=== PATIENT | male | born 1960 | race Caucasian/White ===

== ENCOUNTER 2024-02-01 09:30 | Observation (INO) | payer BC, SELFPAY ==
[2024-02-01] VITALS (71 sets, daily range): BP systolic 86–147; BP diastolic 53–76; PULSE 54–96; RESP 11–23; TEMP 36.6–37; O2SAT 91–100; BMI 37.3
--- NOTE | 2024-02-01 09:46 | DI.CT.S_ITS ---
PROCEDURE: CT ANGIO HEAD AND NECK INDICATIONS: Blurry vision/dizzy TECHNIQUE: After the administration of intravenous contrast, 1 mm thick sections acquired from the aortic arch through the [place] of [place]. 3-dimensional qfsdbcg-bjxzhfypg-rbcvnldlcz (MIP) and/or volume rendering reformats were acquired of the central intracranial vasculature and neck separately. For radiation dose reduction, the following was used: automated exposure control, adjustment of mA and/or kV according to patient size. COMPARISON: [facility], CT, CT HEAD/BRAIN WO CON, 02/01/2024, 10:32. FINDINGS: Image quality: Diagnostic. BRAIN: Please see separately dictated CT head report of 02/01/2024. HEAD CT ANGIOGRAPHY: Anterior circulation: Intracranial internal carotid arteries are normal in size and flow. The flow within the paired anterior cerebral arteries is normal and symmetric. The flow within the middle cerebral arteries is normal and symmetric. The anterior communicating artery is seen. No aneurysms are seen. Posterior circulation: Minimal left vertebral artery dominance. Visualized portions of the vertebral arteries demonstrate normal caliber, and join to form a normal appearing basilar artery. Flow within the posterior cerebral arteries is normal and symmetric. No aneurysms are seen. NECK CT ANGIOGRAPHY: Carotid system: The great vessels demonstrate a conventional anatomy as they arise from the aortic arch. The origins of the common carotid arteries appear patent. The common carotid arteries demonstrate normal caliber and courses. The bifurcation regions are both widely patent. The internal carotid arteries demonstrate normal calibers and courses. Posterior circulation: The origins of the vertebral arteries both appear widely patent. The more superior extracranial portions of both vertebral arteries also demonstrate normal courses and calibers. They join to form a normal appearing basilar artery. Soft tissues: Visualized neck soft tissues demonstrate no suspicious abnormalities. Bones: No suspicious bony lesions. Visualized cervical spine appears normally aligned. IMPRESSION: No areas of hemodynamically significant stenosis, vascular occlusion or aneurysmal dilation within the anterior circulation. No areas of hemodynamically significant stenosis, vascular occlusion or aneurysmal dilation within the posterior circulation. No areas of hemodynamically significant stenosis, vascular occlusion or aneurysmal dilation within the neck vasculature. Any quantitative measurements of stenosis were performed using NASCET criteria. Dictated by: Ling Baker M.D. on 02/01/2024 at 11:10 Approved by: Ling Baker M.D. on 02/01/2024 at 11:11
--- NOTE | 2024-02-01 09:47 | DI.CT.S_ITS ---
PROCEDURE: CT HEAD/BRAIN WO CON INDICATIONS: Blurry vision/dizzy TECHNIQUE: Noncontrast 4.5 mm thick angled axial sections acquired from the foramen magnum to the vertex, with coronal and sagittal reformats. For radiation dose reduction, the following was used: automated exposure control, adjustment of mA and/or kV according to patient size. COMPARISON: [facility], CT, CT ANGIO HEAD AND NECK, 02/01/2024, 10:32. FINDINGS: Image quality: Diagnostic. CSF spaces: Basal cisterns are patent. No extra-axial fluid collections. Ventricles are normal in size and shape. Brain: No midline shift. No intracranial masses or hemorrhage. [place]-white matter interface is normal. Skull and face: Calvarium and visualized facial bones are intact, without suspicious lesions. Sinuses: Visualized sinuses demonstrate scattered mucosal thickening. No distinct fluid levels.. IMPRESSION: No acute intracranial pathology. Dictated by: Ling Baker M.D. on 02/01/2024 at 10:53 Approved by: Ling Baker M.D. on 02/01/2024 at 10:54
[2024-02-01] MEDS: SODIUM CHLORIDE 0.9% 1,000 ML 1000 ML IV ×2 (10:02→15:58)
[2024-02-01 10:06] LABS: Add Manual Diff / Slide Review NO; Basophils Absolute Auto 100 /uL (0-100); Basophils Percent Auto 0.6 % (0-2); Eosinophils Absolute Auto 300 /uL (0-450); Eosinophils Percent Auto 3.9 % (2-4); Hemoglobin 14.6 g/dL (13.5-17.5); Lymphocytes Absolute Auto 1400 /uL (1100-4500); Lymphocytes Percent Auto 15.6 % (25-40); Mean Corpuscular HGB Conc 34.7 % (30-36); Mean Corpuscular Hemoglobin 33.3 PG (26-34); Mean Corpuscular Volume 95.9 fL (80-100); Monocytes Absolute Auto 1100 /uL (0-900); Monocytes Percent Auto 12.7 % (3-14); Neutrophils Absolute Auto 5900 /uL (1500-7000); Neutrophils Percent Auto 67.2 % (50-75); Platelet Count 247 X10^3/uL (150-400); Red Blood Cell Count 4.38 X10^6/uL (4.5-5.9); Red Cell Distribution Width 13.9 % (11.6-14.8); White Blood Cell Count 8.8 X10^3/uL (4.5-11.0)
[2024-02-01 10:10] LABS: Alanine Aminotransferase 21 IU/L (<50); Albumin 3.8 g/dL (3.5-5.0); Albumin Globulin Ratio 1.2 (1.0-2.8); Alkaline Phosphatase 60 U/L (38-126); Aspartate Aminotransferase 36 IU/L (17-59); BUN Creatinine Ratio 12.7 (6-22); Bilirubin Total 0.8 mg/dL (0.2-1.3); Blood Urea Nitrogen 15 mg/dL (9-20); Calcium 8.4 mg/dL (8.4-10.2); Carbon Dioxide 22 mmol/L (22-32); Chloride 105 mmol/L (98-107); Estimated Glomerular Filt Rate > 60 mL/min (>60); Globulin 3.2 g/dL (1.7-4.1); Glucose 136 mg/dL (80-110); HEMOLYSIS 43 (0-50); Potassium 3.8 mmol/L (3.4-5.1); Sodium 134 mmol/L (137-145)
--- NOTE | 2024-02-01 10:11 | ED_ITS ---
HPI - Syncope General Chief Complaint: Syncope Stated Complaint: syncope Time Seen by Provider: 02/01/24 09:39 Source: patient, family and EMS Mode of arrival: EMS Limitations: no limitations History of Present Illness HPI narrative: Patient brought in by ambulance from home. Patient visiting here from [place]. Blood sugar 138. Patient had 2 syncopal episodes witnessed by his . Less than 10 seconds each episode. Patient has been doing well over the weekend. Other than cough cold congestion for the past 3 weeks. Patient is scheduled to fly back home in 2 days. They are here visiting their daughter. Patient states he has been eating and drinking without problems. No black or bloody stools. This morning he went to go the bathroom and while standing he got dizzy and nauseated. He sat down on the toilet. He did not void or have bowel movement. He had slumped over the toilet. was there. No seizure activity. He was able to get up and walk to the bedroom and laid down. However he got up again and passed out again less than 2nd duration. Again no seizure activity no skin color change. No confusion. Denies any pain. EMS states his blood pressure systolic was 80. Worse with trying to sit up. 250 mL of normal saline was given in route. Patient and denies any history of heart attack strokes or diabetes. Patient denies any palpitations shortness of breath chest pain headache back pain abdominal pain prior to syncopal episodes. Fast exam is negative. Patient denies any pain or injury from his syncopal episodes Related Data Home Medications Medication Instructions Recorded Confirmed No Known Home Medications 02/01/24 02/01/24 Allergies Allergy/AdvReac Type Severity Reaction Status Date / Time No Known Drug Allergies Allergy Verified 02/01/24 10:38 Review of Systems Review of Systems Narrative: GENERAL: negative chills, fatigue, malaise, fever, positive sweats. HEENT: negative sinus pain, ear pain, sore throat RESPIRATORY: negative dyspnea, cough CARDIOVASCULAR: negative chest pain, palpitations, positive syncope GASTROINTESTINAL: Positive nausea, negative bloody stools, vomiting, abdominal pain : negative dysuria, frequency, hematuria MUSCULOSKELETAL: negative muscle or bony pain SKIN: negative rash, skin lesions NEUROLOGIC: negative weakness, numbness, positive dizziness ROS Unobtainable: All systems reviewed & are unremarkable except as noted in HPI and below Patient History Social History household members: spouse Smoking Status: Never smoker alcohol intake: current Smoking Status: Never smoker alcohol intake frequency: a few times a week Exam Narrative Exam Narrative: GENERAL: in no distress, not toxic not dyspneic HEAD: Normocephalic. EYES: Pupils equal round ENT: Mucous membranes moist. NECK: Trachea midline. CARDIOVASCULAR: Regular rate and rhythm RESPIRATORY: Clear to auscultation. Breath sounds equal bilaterally. No wheezes, rales, or rhonchi. GASTROINTESTINAL: Abdomen soft, non-tender EXTREMITIES: No gross deformities. BACK: No flank tenderness. NEURO: AOx4. Clear speech no facial droop light touch intact to bilateral face hands and legs. Strong equal park interpretive specialist, negative pronator drift. SKIN: Warm and dry PSYCH: Not anxious, is cooperative Initial Vital Signs Initial Vital Signs: Vital Signs Pulse Rate 66 02/01/24 09:31 Pulse Oximetry 94 02/01/24 09:31 Course Orders Ordered: Discontinued Medications Acetaminophen (Acetaminophen 325 Mg Tablet) 650 mg PO Q6H PRN PRN Reason: Fever/Mild Pain (1-3) Sodium Chloride (Normal Saline 0.9%) 1,000 mls @ 1,000 mls/hr IV BOLUS ONE Stop: 02/01/24 10:45 Last Infusion: 02/01/24 11:31 Dose: Infused Documented By: Admin: 02/01/24 10:02 Dose: 1,000 mls/hr Documented By: MIGUELITO Sodium Chloride (Normal Saline 0.9%) 1,000 mls @ 1,000 mls/hr IV BOLUS ONE Stop: 02/01/24 16:11 Last Admin: 02/01/24 15:58 Dose: 1,000 mls/hr Documented By: BT Sodium Chloride (Normal Saline 0.9%) 1,000 mls @ 100 mls/hr IV CONT MARBELLA Last Admin: 02/02/24 03:16 Dose: 100 mls/hr Documented By: Infusion: 02/02/24 03:16 Dose: Infused Documented By: Admin: 02/01/24 18:39 Dose: 100 mls/hr Documented By: LDV Melatonin (Melatonin 3 Mg Tablet) 6 mg PO BEDTIME PRN PRN Reason: Insomnia Naloxone HCl (Naloxone 0.4 Mg/Ml Vial) 0.2 mg IV Q2MIN PRN PRN Reason: Opiate Reversal Ondansetron HCl (Ondansetron 4 Mg/2 Ml Inj) 4 mg IV NOW ONE Stop: 02/01/24 09:47 Last Admin: 02/01/24 15:10 Dose: Not Given Documented By: MIGUELITO Ondansetron HCl (Ondansetron 4 Mg/2 Ml Inj) 4 mg IV Q4HR PRN PRN Reason: Nausea And Vomiting Polyethylene Glycol (Polyethylene Glycol 3350 17 Gm Powd.Pack) 17 gm PO DAILY PRN PRN Reason: Constipation Sennosides (Sennosides 8.6 Mg Tablet) 8.6 mg PO BID PRN PRN Reason: Constipation Vital Signs Vital signs: Vital Signs - 8 hr 02/01/24 09:31 02/01/24 09:33 02/01/24 09:33 Temperature Pulse Rate 66 64 Pulse Rate [Orthostatic Lying] Pulse Rate [Orthostatic Sitting] Pulse Rate [Orthostatic Standing] Respiratory Rate 21 Blood Pressure 114/61 Blood Pressure [Orthostatic Lying] Blood Pressure [Orthostatic Sitting] Blood Pressure [Orthostatic Standing] Pulse Oximetry 94 95 Oxygen Delivery Method 02/01/24 09:35 02/01/24 09:40 02/01/24 09:45 Temperature Pulse Rate 62 64 62 Pulse Rate [Orthostatic Lying] Pulse Rate [Orthostatic Sitting] Pulse Rate [Orthostatic Standing] Respiratory Rate 20 18 21 Blood Pressure Blood Pressure [Orthostatic Lying] Blood Pressure [Orthostatic Sitting] Blood Pressure [Orthostatic Standing] Pulse Oximetry 97 91 94 Oxygen Delivery Method 02/01/24 09:50 02/01/24 09:54 02/01/24 09:54 Temperature Pulse Rate 62 66 Pulse Rate [Orthostatic Lying] Pulse Rate [Orthostatic Sitting] Pulse Rate [Orthostatic Standing] Respiratory Rate 19 16 Blood Pressure 113/60 Blood Pressure [Orthostatic Lying] Blood Pressure [Orthostatic Sitting] Blood Pressure [Orthostatic Standing] Pulse Oximetry 92 94 Oxygen Delivery Method 02/01/24 09:55 02/01/24 10:00 02/01/24 10:00 Temperature Pulse Rate 66 61 Pulse Rate [Orthostatic Lying] Pulse Rate [Orthostatic Sitting] Pulse Rate [Orthostatic Standing] Respiratory Rate 17 16 Blood Pressure 114/56 L Blood Pressure [Orthostatic Lying] Blood Pressure [Orthostatic Sitting] Blood Pressure [Orthostatic Standing] Pulse Oximetry 94 95 Oxygen Delivery Method 02/01/24 10:05 02/01/24 10:06 02/01/24 10:06 Temperature 97.9 F Pulse Rate 61 63 Pulse Rate [Orthostatic Lying] Pulse Rate [Orthostatic Sitting] Pulse Rate [Orthostatic Standing] Respiratory Rate 21 16 Blood Pressure 114/65 122/59 L Blood Pressure [Orthostatic Lying] Blood Pressure [Orthostatic Sitting] Blood Pressure [Orthostatic Standing] Pulse Oximetry 92 100 Oxygen Delivery Method Room Air 02/01/24 10:06 02/01/24 10:09 02/01/24 10:09 Temperature Pulse Rate 62 72 Pulse Rate [Orthostatic Lying] Pulse Rate [Orthostatic Sitting] Pulse Rate [Orthostatic Standing] Respiratory Rate 18 20 Blood Pressure 106/55 L Blood Pressure [Orthostatic Lying] Blood Pressure [Orthostatic Sitting] Blood Pressure [Orthostatic Standing] Pulse Oximetry 93 95 Oxygen Delivery Method 02/01/24 10:10 02/01/24 10:10 02/01/24 10:12 Temperature Pulse Rate 75 Pulse Rate [Orthostatic Lying] 61 Pulse Rate [Orthostatic Sitting] 95 H Pulse Rate [Orthostatic Standing] 96 H Respiratory Rate Blood Pressure 86/53 L Blood Pressure [Orthostatic Lying] 122/59 L Blood Pressure [Orthostatic Sitting] 106/55 L Blood Pressure [Orthostatic Standing] 86/53 L Pulse Oximetry 95 Oxygen Delivery Method 02/01/24 10:15 02/01/24 10:20 02/01/24 10:25 Temperature Pulse Rate 62 60 62 Pulse Rate [Orthostatic Lying] Pulse Rate [Orthostatic Sitting] Pulse Rate [Orthostatic Standing] Respiratory Rate 19 18 19 Blood Pressure Blood Pressure [Orthostatic Lying] Blood Pressure [Orthostatic Sitting] Blood Pressure [Orthostatic Standing] Pulse Oximetry 92 92 91 Oxygen Delivery Method 02/01/24 10:38 02/01/24 10:38 02/01/24 10:40 Temperature Pulse Rate 63 64 Pulse Rate [Orthostatic Lying] Pulse Rate [Orthostatic Sitting] Pulse Rate [Orthostatic Standing] Respiratory Rate 12 17 Blood Pressure 147/67 H Blood Pressure [Orthostatic Lying] Blood Pressure [Orthostatic Sitting] Blood Pressure [Orthostatic Standing] Pulse Oximetry 95 98 Oxygen Delivery Method 02/01/24 10:42 02/01/24 10:42 02/01/24 10:45 Temperature Pulse Rate 64 62 Pulse Rate [Orthostatic Lying] Pulse Rate [Orthostatic Sitting] Pulse Rate [Orthostatic Standing] Respiratory Rate 19 19 Blood Pressure 113/58 L Blood Pressure [Orthostatic Lying] Blood Pressure [Orthostatic Sitting] Blood Pressure [Orthostatic Standing] Pulse Oximetry 96 93 Oxygen Delivery Method 02/01/24 10:45 02/01/24 10:50 02/01/24 10:55 Temperature Pulse Rate 61 61 Pulse Rate [Orthostatic Lying] Pulse Rate [Orthostatic Sitting] Pulse Rate [Orthostatic Standing] Respiratory Rate 19 18 Blood Pressure 114/57 L Blood Pressure [Orthostatic Lying] Blood Pressure [Orthostatic Sitting] Blood Pressure [Orthostatic Standing] Pulse Oximetry 95 94 Oxygen Delivery Method 02/01/24 11:00 02/01/24 11:00 02/01/24 11:05 Temperature Pulse Rate 65 67 Pulse Rate [Orthostatic Lying] Pulse Rate [Orthostatic Sitting] Pulse Rate [Orthostatic Standing] Respiratory Rate 19 Blood Pressure 120/56 L Blood Pressure [Orthostatic Lying] Blood Pressure [Orthostatic Sitting] Blood Pressure [Orthostatic Standing] Pulse Oximetry 94 96 Oxygen Delivery Method 02/01/24 11:10 02/01/24 11:15 02/01/24 11:15 Temperature Pulse Rate 60 59 L Pulse Rate [Orthostatic Lying] Pulse Rate [Orthostatic Sitting] Pulse Rate [Orthostatic Standing] Respiratory Rate 17 14 Blood Pressure 117/57 L Blood Pressure [Orthostatic Lying] Blood Pressure [Orthostatic Sitting] Blood Pressure [Orthostatic Standing] Pulse Oximetry 94 96 Oxygen Delivery Method 02/01/24 11:20 02/01/24 11:25 02/01/24 11:30 Temperature Pulse Rate 56 L 59 L Pulse Rate [Orthostatic Lying] Pulse Rate [Orthostatic Sitting] Pulse Rate [Orthostatic Standing] Respiratory Rate 18 16 Blood Pressure 117/62 Blood Pressure [Orthostatic Lying] Blood Pressure [Orthostatic Sitting] Blood Pressure [Orthostatic Standing] Pulse Oximetry 93 95 Oxygen Delivery Method 02/01/24 11:30 02/01/24 11:35 02/01/24 11:40 Temperature Pulse Rate 58 L 57 L 55 L Pulse Rate [Orthostatic Lying] Pulse Rate [Orthostatic Sitting] Pulse Rate [Orthostatic Standing] Respiratory Rate 19 14 20 Blood Pressure Blood Pressure [Orthostatic Lying] Blood Pressure [Orthostatic Sitting] Blood Pressure [Orthostatic Standing] Pulse Oximetry 97 95 96 Oxygen Delivery Method 02/01/24 11:45 02/01/24 11:45 02/01/24 11:50 Temperature Pulse Rate 54 L 59 L Pulse Rate [Orthostatic Lying] Pulse Rate [Orthostatic Sitting] Pulse Rate [Orthostatic Standing] Respiratory Rate 17 23 Blood Pressure 112/58 L Blood Pressure [Orthostatic Lying] Blood Pressure [Orthostatic Sitting] Blood Pressure [Orthostatic Standing] Pulse Oximetry 97 96 Oxygen Delivery Method 02/01/24 11:55 02/01/24 12:00 02/01/24 12:00 Temperature Pulse Rate 60 56 L Pulse Rate [Orthostatic Lying] Pulse Rate [Orthostatic Sitting] Pulse Rate [Orthostatic Standing] Respiratory Rate Blood Pressure 106/55 L Blood Pressure [Orthostatic Lying] Blood Pressure [Orthostatic Sitting] Blood Pressure [Orthostatic Standing] Pulse Oximetry 97 97 Oxygen Delivery Method 02/01/24 12:05 02/01/24 12:10 02/01/24 12:15 Temperature Pulse Rate 59 L 58 L Pulse Rate [Orthostatic Lying] Pulse Rate [Orthostatic Sitting] Pulse Rate [Orthostatic Standing] Respiratory Rate 20 20 Blood Pressure 111/54 L Blood Pressure [Orthostatic Lying] Blood Pressure [Orthostatic Sitting] Blood Pressure [Orthostatic Standing] Pulse Oximetry 96 96 Oxygen Delivery Method 02/01/24 12:15 02/01/24 12:20 02/01/24 12:25 Temperature Pulse Rate 63 58 L 55 L Pulse Rate [Orthostatic Lying] Pulse Rate [Orthostatic Sitting] Pulse Rate [Orthostatic Standing] Respiratory Rate 17 16 18 Blood Pressure Blood Pressure [Orthostatic Lying] Blood Pressure [Orthostatic Sitting] Blood Pressure [Orthostatic Standing] Pulse Oximetry 97 95 92 Oxygen Delivery Method 02/01/24 12:30 02/01/24 12:30 02/01/24 12:35 Temperature Pulse Rate 56 L 59 L Pulse Rate [Orthostatic Lying] Pulse Rate [Orthostatic Sitting] Pulse Rate [Orthostatic Standing] Respiratory Rate 17 18 Blood Pressure 118/61 Blood Pressure [Orthostatic Lying] Blood Pressure [Orthostatic Sitting] Blood Pressure [Orthostatic Standing] Pulse Oximetry 93 93 Oxygen Delivery Method 02/01/24 12:40 02/01/24 12:45 02/01/24 12:45 Temperature Pulse Rate 59 L 60 Pulse Rate [Orthostatic Lying] Pulse Rate [Orthostatic Sitting] Pulse Rate [Orthostatic Standing] Respiratory Rate 18 18 Blood Pressure 117/60 Blood Pressure [Orthostatic Lying] Blood Pressure [Orthostatic Sitting] Blood Pressure [Orthostatic Standing] Pulse Oximetry 93 93 Oxygen Delivery Method 02/01/24 12:50 02/01/24 12:55 02/01/24 13:00 Temperature Pulse Rate 69 57 L Pulse Rate [Orthostatic Lying] Pulse Rate [Orthostatic Sitting] Pulse Rate [Orthostatic Standing] Respiratory Rate 14 17 Blood Pressure 121/58 L Blood Pressure [Orthostatic Lying] Blood Pressure [Orthostatic Sitting] Blood Pressure [Orthostatic Standing] Pulse Oximetry 94 93 Oxygen Delivery Method 02/01/24 13:00 02/01/24 13:05 02/01/24 13:10 Temperature Pulse Rate 60 56 L 60 Pulse Rate [Orthostatic Lying] Pulse Rate [Orthostatic Sitting] Pulse Rate [Orthostatic Standing] Respiratory Rate 17 17 19 Blood Pressure Blood Pressure [Orthostatic Lying] Blood Pressure [Orthostatic Sitting] Blood Pressure [Orthostatic Standing] Pulse Oximetry 94 94 96 Oxygen Delivery Method 02/01/24 13:15 02/01/24 13:15 02/01/24 13:20 Temperature Pulse Rate 59 L 61 Pulse Rate [Orthostatic Lying] Pulse Rate [Orthostatic Sitting] Pulse Rate [Orthostatic Standing] Respiratory Rate 19 19 Blood Pressure 127/61 Blood Pressure [Orthostatic Lying] Blood Pressure [Orthostatic Sitting] Blood Pressure [Orthostatic Standing] Pulse Oximetry 93 95 Oxygen Delivery Method MDM - Syncope Lab Data 02/02/24 04:03 02/02/24 04:03 Labs: Lab Results 02/01/24 02/01/24 Range/Units 09:37 13:20 WBC 8.8 (4.5-11.0) X10^3/uL RBC 4.38 L (4.5-5.9) X10^6/uL Hgb 14.6 (13.5-17.5) g/dL Hct 42.0 (41-53) % MCV 95.9 (80-100) fL MCH 33.3 (26-34) PG MCHC 34.7 (30-36) % RDW 13.9 (11.6-14.8) % Plt Count 247 (150-400) X10^3/uL Neut % (Auto) 67.2 (50-75) % Lymph % (Auto) 15.6 L (25-40) % Vernon % (Auto) 12.7 (3-14) % Eos % (Auto) 3.9 (2-4) % Baso % (Auto) 0.6 (0-2) % Neut # (Auto) 5900 (7476-9818) /uL Lymph # (Auto) 1400 (6005-7281) /uL Vernon # (Auto) 1100 H (0-900) /uL Eos # (Auto) 300 (0-450) /uL Baso # (Auto) 100 (0-100) /uL D-Dimer 457 (<500) ng/ml Sodium 134 L (137-145) mmol/L Potassium 3.8 (3.4-5.1) mmol/L Chloride 105 (98-107) mmol/L Carbon Dioxide 22 (22-32) mmol/L BUN 15 (9-20) mg/dL Creatinine 1.18 (0.66-1.25) mg/dL Estimated GFR > 60 (>60) mL/min BUN/Creatinine Ratio 12.7 (6-22) Glucose 136 H (80-110) mg/dL Calcium 8.4 (8.4-10.2) mg/dL Total Bilirubin 0.8 (0.2-1.3) mg/dL AST 36 (17-59) IU/L ALT 21 (<50) IU/L Alkaline Phosphatase 60 (38-126) U/L Troponin I < 0.012 < 0.012 (0.01-0.034) ng/mL Total Protein 7.0 (6.3-8.2) g/dL Albumin 3.8 (3.5-5.0) g/dL Globulin 3.2 (1.7-4.1) g/dL Albumin/Globulin Ratio 1.2 (1.0-2.8) TSH 2.29 (0.47-4.68) uIU/mL Imaging Data Echocardiogram: Radiologist's Impression: [address] [address] Echocardiography Report Signed Patient: Brenda Knight MR#: [id number] : 1960 Acct:[id number] Age/Sex: 63 / M Date of Service: 02/01/24 Loc: ED Accession Number: [id number] Procedure: EC echo doppler complete Ordering Provider: Anay Russo MD [place] [facility]---------+ [facility] +---------+ : : [address] : : : : [id number] : : : : Phone: [phone] Echocardiogram Report + + :Name: BRENDA KNIGHT Study Date: 02/01/2024 Height: 70 in : :[facility] ReadingLocation: Weight: 260 lb : : Gender: Male BSA: 2.3 m2 : :: 1960 Age: 63 yrs BP: 120/56 mmHg: :Reason For Study: SYNCOPE : :Ordering Physician: RAFAELA, : :ANAY Performed By: Dariela Baxter : :Referring: ANAY RUSSO : + + Interpretation Summary 1) Normal left ventricular thickness, size, wall motion, and systolic function (EF 60-65%). 2) Grossly, normal right ventricular size and function. 3) No significant valvular abnormalities. 4) No prior Echo available for comparison. Procedure: A two-dimensional transthoracic echocardiogram with color flow and Doppler was performed. The study quality was technically adequate. A contrast injection of Definity was performed to improve assessment of LV function. There is no prior echocardiogram noted for this patient. The patient was in sinus rhythm with heart rates between 55-78 bpm during the exam. Left Ventricle: The left ventricle is normal in size and wall thickness. The ejection fraction is estimated to be 60-65%. Left ventricular systolic function appears normal without focal wall motion abnormalities. Right Ventricle: The right ventricle is grossly normal size. The right ventricular systolic function is normal. Atria: The left atrial size is normal. Right atrial size is normal. There is no Doppler evidence for an interatrial shunt. Mitral Valve: The mitral valve is normal in structure and function. There is trace mitral regurgitation. Aortic Valve: The aortic valve is not well visualized. The aortic valve opens well. There is no aortic valve stenosis. No aortic regurgitation is present. Tricuspid Valve: The tricuspid valve is normal in structure and function. There is mild tricuspid regurgitation. The right ventricular systolic pressure is estimated to be at least 35 mmHg based on an estimated right atrial pressure of 3 mm Hg. Pulmonic Valve: The pulmonic valve leaflets are thin and pliable; valve motion is normal. There is no pulmonic valvular regurgitation. Great Vessels: The aortic root is normal size. The dimensions of the ascending aorta are normal. The IVC is dilated (diameter is greater than 2.1 cm) yet it collapses greater than 50% with a sniff. This suggests a right atrial pressure of 8 mm Hg. Pericardium/ Pleura There is no pericardial effusion. There is no pleural effusion. MMode/2D Measurements & Calculations LVIDd: 5.1 cm LVOT diam: 2.3 cm LVIDs: 3.4 cm Ao root diam: 3.4 cm FS: 33.0 % asc Aorta Diam: 3.7 cm IVSd: 0.85 cm Ao Arch Diam (Prox Trans): 3.0 cm LVPWd: 0.94 cm LV jimenez. diameter/BSA (cm/m^2): 2.2 LV sys. diameter/BSA (cm/m^2): 1.5 LA A2 area: 17.5 cm2 RA long axis: 5.8 cm LA A4 area: 18.8 cm2 RA area: 14.7 cm2 LA length (vol): 5.8 cm RA vol: 31.6 ml LA vol: 47.9 ml RA : 13.5 ml/m2 LA vol index: 20.5 ml/m2 IVC diam: 2.5 cm RVD1 (basal): 4.0 cm TAPSE: 2.5 cm Doppler Measurements & Calculations Ao V2 max: 149.1 cm/sec LVOT Max Ted: 93.0 cm/sec Ao V2 mean: 98.9 cm/sec LV V1 max P.5 mmHg Ao max P.9 mmHg LV V1 VTI: 23.0 cm Ao mean P.5 mmHg SILVIANO(I,D): 2.9 cm2 Ao V2 VTI: 33.1 cm SILVIANO(V,D): 2.6 cm2 sev ratio: 0.69 SILVIANO indexed to BSA (cm^2/m^2): 1.3 MV E max ted: 72.0 cm/sec TR max ted: 259.3 cm/sec MV A max ted: 53.9 cm/sec TR max P.9 mmHg MV E/A: 1.3 PA V2 max: 92.8 cm/sec Med Peak E' Ted: 7.6 cm/sec PA V2 mean: 67.9 cm/sec E/E' med: 9.5 PA mean P.0 mmHg Lat Peak E' Ted: 10.6 cm/sec PA pr(Accel): 27.6 mmHg E/E' lat: 6.8 E/e' average: 8.1 MV dec time: 0.22 sec SV(LVOT): 97.6 ml Reading Physician:12:[address] scan - head: Radiologist's Impression: [place] [address] CT Scan Report Signed Patient: Brenda Knight MR#: [id number] : 1960 Acct:[id number] Age/Sex: 63 / M Date of Service: 02/01/24 Loc: ED Accession Number: [id number] Procedure: CT head/brain wo con Ordering Provider: Anay Russo MD PROCEDURE: CT HEAD/BRAIN WO CON INDICATIONS: Blurry vision/dizzy TECHNIQUE: Noncontrast 4.5 mm thick angled axial sections acquired from the foramen magnum to the vertex, with coronal and sagittal reformats. For radiation dose reduction, the following was used: automated exposure control, adjustment of mA and/or kV according to patient size. COMPARISON: [facility], CT, CT ANGIO HEAD AND NECK, 02/01/2024, 10:32. FINDINGS: Image quality: Diagnostic. CSF spaces: Basal cisterns are patent. No extra-axial fluid collections. Ventricles are normal in size and shape. Brain: No midline shift. No intracranial masses or hemorrhage. Salgado-white matter interface is normal. Skull and face: Calvarium and visualized facial bones are intact, without suspicious lesions. Sinuses: Visualized sinuses demonstrate scattered mucosal thickening. No distinct fluid levels.. IMPRESSION: No acute intracranial pathology. Dictated by: Ling Baker M.D. on 02/01/2024 at 10:53 Approved by: Ling Baker M.D. on 02/01/2024 at 10:54 CTA - brain/neck: Radiologist's Impression: [address] [address] [address] Scan Report Signed Patient: Brenda Knight MR#: [id number] : 1960 Acct:[id number] Age/Sex: 63 / M Date of Service: 02/01/24 Loc: ED Accession Number: [id number] Procedure: CT angio head and neck Ordering Provider: Anay Russo MD PROCEDURE: CT ANGIO HEAD AND NECK INDICATIONS: Blurry vision/dizzy TECHNIQUE: After the administration of intravenous contrast, 1 mm thick sections acquired from the aortic arch through the [place]. 3-dimensional zovmgmu-htiaumvrt-pnwqcfwsru (MIP) and/or volume rendering reformats were acquired of the central intracranial vasculature and neck separately. For radiation dose reduction, the following was used: automated exposure control, adjustment of mA and/or kV according to patient size. COMPARISON: [facility], CT, CT HEAD/BRAIN WO CON, 02/01/2024, 10:32. FINDINGS: Image quality: Diagnostic. BRAIN: Please see separately dictated CT head report of 02/01/2024. HEAD CT ANGIOGRAPHY: Anterior circulation: Intracranial internal carotid arteries are normal in size and flow. The flow within the paired anterior cerebral arteries is normal and symmetric. The flow within the middle cerebral arteries is normal and symmetric. The anterior communicating artery is seen. No aneurysms are seen. Posterior circulation: Minimal left vertebral artery dominance. Visualized portions of the vertebral arteries demonstrate normal caliber, and join to form a normal appearing basilar artery. Flow within the posterior cerebral arteries is normal and symmetric. No aneurysms are seen. NECK CT ANGIOGRAPHY: Carotid system: The great vessels demonstrate a conventional anatomy as they arise from the aortic arch. The origins of the common carotid arteries appear patent. The common carotid arteries demonstrate normal caliber and courses. The bifurcation regions are both widely patent. The internal carotid arteries demonstrate normal calibers and courses. Posterior circulation: The origins of the vertebral arteries both appear widely patent. The more superior extracranial portions of both vertebral arteries also demonstrate normal courses and calibers. They join to form a normal appearing basilar artery. Soft tissues: Visualized neck soft tissues demonstrate no suspicious abnormalities. Bones: No suspicious bony lesions. Visualized cervical spine appears normally aligned. IMPRESSION: No areas of hemodynamically significant stenosis, vascular occlusion or aneurysmal dilation within the anterior circulation. No areas of hemodynamically significant stenosis, vascular occlusion or aneurysmal dilation within the posterior circulation. No areas of hemodynamically significant stenosis, vascular occlusion or aneurysmal dilation within the neck vasculature. Any quantitative measurements of stenosis were performed using NASCET criteria. Dictated by: Ling Baker M.D. on 02/01/2024 at 11:10 Approved by: Ling Baker M.D. on 02/01/2024 at 11:11 CT scan - chest: Radiologist's Impression: [address] [address] [address] Scan Report Signed Patient: Brenda Knight MR#: [id number] : 1960 Acct:[id number] Age/Sex: 63 / M Date of Service: 02/01/24 Loc: 219-1 Accession Number: [id number] Procedure: CT chest wo con Ordering Provider: Anay Russo MD PROCEDURE: CT CHEST WO CON INDICATIONS: syncope TECHNIQUE: Noncontrast 5 mm thick sections acquired from the pulmonary apices to the posterior costophrenic angles. 1 mm lung window, 5 mm thick coronal and sagittal and 7 mm axial MIP reformats were then acquired. For radiation dose reduction, the following was used: automated exposure control, adjustment of mA and/or kV according to patient size. COMPARISON: None. FINDINGS: Image quality: Diagnostic. Lower Neck: No enlarged lymph nodes. Thyroid: No thyroid nodules which require sonographic follow up, per consensus guidelines. Axillae: No enlarged lymph nodes. Chest Wall: Unremarkable. Bones: Unremarkable. Lungs and Pleura: No pneumothorax or pleural effusions. No consolidations. 3 mm pleural based right lower lobe nodule series 3, image 192. No priors. Heart: Heart size is normal. No pericardial effusion. Thoracic Vessels: The aorta and pulmonary arteries demonstrate normal size. Mediastinum and Shanna: No enlarged lymph nodes. Esophagus: No wall thickening. Mild hiatal hernia. Upper Abdomen: Bilateral nonobstructing renal calculi. Otherwise, visualized upper abdomen solid organs and bowel loops appear normal. IMPRESSION: 3 mm nonspecific pleural based right lower lobe nodule. No additional follow-up for low risk patient as per recommendations below. Bilateral nonobstructing renal calculi. Fleischner Society criteria for SOLID lung nodule followup. Nodule size (mm)Low-risk patientHigh-risk patient<6 (single or multiple)No routine followup.Optional CT at 12 months. 6-8 (single or multiple)CT at 6-12 months, then optional CT at 18-24 mo.CT at 6-12 months, then CT at 18-24 months. >8 (single)CT, PET-CT, or biopsy at 3 months. Same as for low-risk pts. >8 (multiple)CT at 3-6 months, then optional CT at 18-24 mo.CT at 3-6 months, then CT at 18-24 months. Recommendations do not apply to lung cancer screening, patients with immunosuppression, or patients with known primary cancer. Dictated by: Ling Baker M.D. on 02/01/2024 at 14:01 Approved by: Ling Baker M.D. on 02/01/2024 at 14:05 [facility] Narrative Medical decision making narrative: Patient brought in by ambulance from home. Patient visiting here from [place]. Blood sugar 138. Patient had 2 syncopal episodes witnessed by his . Less than 10 seconds each episode. Patient has been doing well over the weekend. Other than cough cold congestion for the past 3 weeks. Patient is scheduled to fly back home in 2 days. They are here visiting their daughter. Patient states he has been eating and drinking without problems. No black or bloody stools. This morning he went to go the bathroom and while standing he got dizzy and nauseated. He sat down on the toilet. He did not void or have bowel movement. He had slumped over the toilet. was there. No seizure activity. He was able to get up and walk to the bedroom and laid down. However he got up again and passed out again less than 2nd duration. Again no seizure activity no skin color change. No confusion. Denies any pain. EMS states his blood pressure systolic was 80. Worse with trying to sit up. 250 mL of normal saline was given in route. Patient and denies any history of heart attack strokes or diabetes. Patient denies any palpitations shortness of breath chest pain headache back pain abdominal pain prior to syncopal episodes. Fast exam is negative. Patient denies any pain or injury from his syncopal episodes After history and exam CBC CMP EKG troponin D-dimer CT head CT angiogram head neck orthostatics normal saline MDM Medical records reviewed: No recent visit for this complaint Differential considered: Includes but not limited to stroke pulmonary embolism or dissection IL vasovagal syncope dehydration anemia arrhythmia Lab Test results independently reviewed as above. Pertinent findings: WBC 8.8 hemoglobin 14.6 sodium 134 potassium 3.8 troponin less than 0.012 x2 Independently reviewed EKG normal sinus rhythm normal EKG rate [address] elevation or depression Repeat EKG sinus bradycardia rate [address] elevation or depression Imaging studies independently reviewed: CT head CT angiogram head and neck no acute finding echocardiogram no acute finding CT chest NAD Consultations: 1:22 p.m.. Spoke with hospitalist, Dr. Jack, who will admit patient Treatments: Normal saline Re-evaluations: 1027 a.m.. Patient was orthostatic on testing. Pulse went from 60-90. Blood pressure did drop. Patient was slightly dizzy. I did update patient and family results. They are reassuring. They do agree for observation overnight before flying back home 1:00 p.m.. Reviewed results with patient and family. Patient is doing better now. At this time exam and laboratory studies are reassuring however possible arrhythmic event that occurred for his dizziness and syncope. Admission observation would be prudent. They do agree at this time. Discussion: Appropriate for admission for syncopal episode x2. At this time workup is reassuring but observation overnight would be prudent before patient flying back home Diagnosis: Syncope Discharge Plan Departure Patient Disposition: Admitted as Observation Clinical Impression: Syncope and collapse Admit Date/Time: 02/01/24 13:23 Admit Provider: Darian Jack
[2024-02-01 10:22] LABS: Troponin I < 0.012 ng/mL (0.01-0.034)
--- NOTE | 2024-02-01 10:23 | DI.ECHO.S_ITS ---
[facility] +---------+ : : [address] : : : : [id number] : : : : Phone: [phone]+ Echocardiogram Report + + :Name: BRENDA MONTOYA Study Date: 02/01/2024 Height: 70 in : :[facility] ReadingLocation: Weight: 260 lb : : Gender: Male BSA: 2.3 m2 : :: 1960 Age: 63 yrs BP: 120/56 mmHg: :Reason For Study: SYNCOPE : :Ordering Physician: RAFAELA, : :ANAY Performed By: Dariela Baxter : :Referring: ANAY RUSSO : + + Interpretation Summary 1) Normal left ventricular thickness, size, wall motion, and systolic function (EF 60-65%). 2) Grossly, normal right ventricular size and function. 3) No significant valvular abnormalities. 4) No prior Echo available for comparison. Procedure: A two-dimensional transthoracic echocardiogram with color flow and Doppler was performed. The study quality was technically adequate. A contrast injection of Definity was performed to improve assessment of LV function. There is no prior echocardiogram noted for this patient. The patient was in sinus rhythm with heart rates between 55-78 bpm during the exam. Left Ventricle: The left ventricle is normal in size and wall thickness. The ejection fraction is estimated to be 60-65%. Left ventricular systolic function appears normal without focal wall motion abnormalities. Right Ventricle: The right ventricle is grossly normal size. The right ventricular systolic function is normal. Atria: The left atrial size is normal. Right atrial size is normal. There is no Doppler evidence for an interatrial shunt. Mitral Valve: The mitral valve is normal in structure and function. There is trace mitral regurgitation. Aortic Valve: The aortic valve is not well visualized. The aortic valve opens well. There is no aortic valve stenosis. No aortic regurgitation is present. Tricuspid Valve: The tricuspid valve is normal in structure and function. There is mild tricuspid regurgitation. The right ventricular systolic pressure is estimated to be at least 35 mmHg based on an estimated right atrial pressure of 3 mm Hg. Pulmonic Valve: The pulmonic valve leaflets are thin and pliable; valve motion is normal. There is no pulmonic valvular regurgitation. Great Vessels: The aortic root is normal size. The dimensions of the ascending aorta are normal. The IVC is dilated (diameter is greater than 2.1 cm) yet it collapses greater than 50% with a sniff. This suggests a right atrial pressure of 8 mm Hg. Pericardium/ Pleura There is no pericardial effusion. There is no pleural effusion. MMode/2D Measurements & Calculations LVIDd: 5.1 cm LVOT diam: 2.3 cm LVIDs: 3.4 cm Ao root diam: 3.4 cm FS: 33.0 % asc Aorta Diam: 3.7 cm IVSd: 0.85 cm Ao Arch Diam (Prox Trans): 3.0 cm LVPWd: 0.94 cm LV jimenez. diameter/BSA (cm/m^2): 2.2 LV sys. diameter/BSA (cm/m^2): 1.5 LA A2 area: 17.5 cm2 RA long axis: 5.8 cm LA A4 area: 18.8 cm2 RA area: 14.7 cm2 LA length (vol): 5.8 cm RA vol: 31.6 ml LA vol: 47.9 ml RA : 13.5 ml/m2 LA vol index: 20.5 ml/m2 IVC diam: 2.5 cm RVD1 (basal): 4.0 cm TAPSE: 2.5 cm Doppler Measurements & Calculations Ao V2 max: 149.1 cm/sec LVOT Max Ted: 93.0 cm/sec Ao V2 mean: 98.9 cm/sec LV V1 max P.5 mmHg Ao max P.9 mmHg LV V1 VTI: 23.0 cm Ao mean P.5 mmHg SILVIANO(I,D): 2.9 cm2 Ao V2 VTI: 33.1 cm SILVIANO(V,D): 2.6 cm2 sev ratio: 0.69 SILVIANO indexed to BSA (cm^2/m^2): 1.3 MV E max ted: 72.0 cm/sec TR max ted: 259.3 cm/sec MV A max ted: 53.9 cm/sec TR max P.9 mmHg MV E/A: 1.3 PA V2 max: 92.8 cm/sec Med Peak E' Ted: 7.6 cm/sec PA V2 mean: 67.9 cm/sec E/E' med: 9.5 PA mean P.0 mmHg Lat Peak E' Ted: 10.6 cm/sec PA pr(Accel): 27.6 mmHg E/E' lat: 6.8 E/e' average: 8.1 MV dec time: 0.22 sec SV(LVOT): 97.6 ml Reading Physician:12:23 PM
[2024-02-01 10:32] LABS: D Dimer 457 ng/ml (<500)
--- NOTE | 2024-02-01 10:37 | PC.NURSE ---
cold feet ---- socks applied
--- NOTE | 2024-02-01 13:20 | DI.CT.S_ITS ---
PROCEDURE: CT CHEST WO CON INDICATIONS: syncope TECHNIQUE: Noncontrast 5 mm thick sections acquired from the pulmonary apices to the posterior costophrenic angles. 1 mm lung window, 5 mm thick coronal and sagittal and 7 mm axial MIP reformats were then acquired. For radiation dose reduction, the following was used: automated exposure control, adjustment of mA and/or kV according to patient size. COMPARISON: None. FINDINGS: Image quality: Diagnostic. Lower Neck: No enlarged lymph nodes. Thyroid: No thyroid nodules which require sonographic follow up, per consensus guidelines. Axillae: No enlarged lymph nodes. Chest Wall: Unremarkable. Bones: Unremarkable. Lungs and Pleura: No pneumothorax or pleural effusions. No consolidations. 3 mm pleural based right lower lobe nodule series 3, image 192. No priors. Heart: Heart size is normal. No pericardial effusion. Thoracic Vessels: The aorta and pulmonary arteries demonstrate normal size. Mediastinum and Shanna: No enlarged lymph nodes. Esophagus: No wall thickening. Mild hiatal hernia. Upper Abdomen: Bilateral nonobstructing renal calculi. Otherwise, visualized upper abdomen solid organs and bowel loops appear normal. IMPRESSION: 3 mm nonspecific pleural based right lower lobe nodule. No additional follow-up for low risk patient as per recommendations below. Bilateral nonobstructing renal calculi. Fleischner Society criteria for SOLID lung nodule followup. Nodule size (mm)Low-risk patientHigh-risk patient<6 (single or multiple)No routine followup.Optional CT at 12 months. 6-8 (single or multiple)CT at 6-12 months, then optional CT at 18-24 mo.CT at 6-12 months, then CT at 18-24 months. >8 (single)CT, PET-CT, or biopsy at 3 months. Same as for low-risk pts. >8 (multiple)CT at 3-6 months, then optional CT at 18-24 mo.CT at 3-6 months, then CT at 18-24 months. Recommendations do not apply to lung cancer screening, patients with immunosuppression, or patients with known primary cancer. Dictated by: Ling Baker M.D. on 02/01/2024 at 14:01 Approved by: Ling Baker M.D. on 02/01/2024 at 14:05
[2024-02-01 13:58] LABS: Troponin I < 0.012 ng/mL (0.01-0.034)
[2024-02-01 14:11] LABS: Urine Volume 10mL (spun)
[2024-02-01 14:12] LABS: Bacteria Urine None Seen; Culture Indicated Urine Cult Not Indicated; RBC Urine None Seen (0-5/HPF); Squamous Epithelial Cell Urine None Seen (0-5/HPF); WBC Urine None Seen (0-5/HPF)
--- NOTE | 2024-02-01 15:14 | PC.NURSE ---
Reassess; no change. Pt remains laying in bed as pt states he is symptom free when he lays flat.
[2024-02-01 16:45] LABS: TSH w/ Reflex to FT4 2.29 uIU/mL (0.47-4.68)
[2024-02-01] MEDS: SODIUM CHLORIDE 0.9% 1,000 ML 100 ML IV (18:39)
--- NOTE | 2024-02-01 18:56 | PM.HP.1 ---
History of Present Illness History of Present Illness Date Patient Seen: 02/01/24 Chief complaint: syncope Narrative: Samir is a 63 YO male with no past medical history. He is presenting today with a CC of syncope. At 8am this morning he felt very nauseous and diaphoretic on his way to the bathroom he fainted. He then laid down for a few minutes and as he tried to stand back up he fainted a second time. He reports not hitting his head but losing consciousness both times for a few seconds. He has been struggling with a sinus infection for the past 3 weeks and has been put on Amoxicillin as well as a Z-pack that he finished a few days ago. Over the past 3 weeks he has had a productive cough that produces brownish green sputum. His also mentioned she can hear him wheezing. Associated with the cough he has been complaining of a sore throat, rhinorrhea, a sinus headache, fever, and chills. Patient denies SOB, vomiting, or diarrhea. [facility] Social History household members: spouse Smoking Status: Never smoker alcohol intake: current Meds Home Medications and Allergies Home Medications Medication Instructions Recorded Confirmed Type No Known Home Medications 02/01/24 02/01/24 History Allergies Allergy/AdvReac Type Severity Reaction Status Date / Time No Known Drug Allergies Allergy Verified 02/01/24 10:38 Review of Systems Review of Systems Narrative: All other systems reviewed with the patient and are negative unless otherwise stated. Exam Vital Signs (past 8 hours): - 02/01/24 11:00 02/01/24 11:00 02/01/24 11:05 Temperature Pulse Rate 65 67 Respiratory Rate 19 Blood Pressure 120/56 L Pulse Oximetry 94 96 Oxygen Flow Rate 02/01/24 11:10 02/01/24 11:15 02/01/24 11:15 Temperature Pulse Rate 60 59 L Respiratory Rate 17 14 Blood Pressure 117/57 L Pulse Oximetry 94 96 Oxygen Flow Rate 02/01/24 11:20 02/01/24 11:25 02/01/24 11:30 Temperature Pulse Rate 56 L 59 L Respiratory Rate 18 16 Blood Pressure 117/62 Pulse Oximetry 93 95 Oxygen Flow Rate 02/01/24 11:30 02/01/24 11:35 02/01/24 11:40 Temperature Pulse Rate 58 L 57 L 55 L Respiratory Rate 19 14 20 Blood Pressure Pulse Oximetry 97 95 96 Oxygen Flow Rate 02/01/24 11:45 02/01/24 11:45 02/01/24 11:50 Temperature Pulse Rate 54 L 59 L Respiratory Rate 17 23 Blood Pressure 112/58 L Pulse Oximetry 97 96 Oxygen Flow Rate 02/01/24 11:55 02/01/24 12:00 02/01/24 12:00 Temperature Pulse Rate 60 56 L Respiratory Rate Blood Pressure 106/55 L Pulse Oximetry 97 97 Oxygen Flow Rate 02/01/24 12:05 02/01/24 12:10 02/01/24 12:15 Temperature Pulse Rate 59 L 58 L Respiratory Rate 20 20 Blood Pressure 111/54 L Pulse Oximetry 96 96 Oxygen Flow Rate 02/01/24 12:15 02/01/24 12:20 02/01/24 12:25 Temperature Pulse Rate 63 58 L 55 L Respiratory Rate 17 16 18 Blood Pressure Pulse Oximetry 97 95 92 Oxygen Flow Rate 02/01/24 12:30 02/01/24 12:30 02/01/24 12:35 Temperature Pulse Rate 56 L 59 L Respiratory Rate 17 18 Blood Pressure 118/61 Pulse Oximetry 93 93 Oxygen Flow Rate 02/01/24 12:40 02/01/24 12:45 02/01/24 12:45 Temperature Pulse Rate 59 L 60 Respiratory Rate 18 18 Blood Pressure 117/60 Pulse Oximetry 93 93 Oxygen Flow Rate 02/01/24 12:50 02/01/24 12:55 02/01/24 13:00 Temperature Pulse Rate 69 57 L Respiratory Rate 14 17 Blood Pressure 121/58 L Pulse Oximetry 94 93 Oxygen Flow Rate 02/01/24 13:00 02/01/24 13:05 02/01/24 13:10 Temperature Pulse Rate 60 56 L 60 Respiratory Rate 17 17 19 Blood Pressure Pulse Oximetry 94 94 96 Oxygen Flow Rate 02/01/24 13:15 02/01/24 13:15 02/01/24 13:20 Temperature Pulse Rate 59 L 61 Respiratory Rate 19 19 Blood Pressure 127/61 Pulse Oximetry 93 95 Oxygen Flow Rate 02/01/24 13:32 02/01/24 13:34 02/01/24 13:34 Temperature Pulse Rate 63 57 L Respiratory Rate 12 Blood Pressure 122/58 L Pulse Oximetry 93 96 Oxygen Flow Rate 02/01/24 13:35 02/01/24 13:40 02/01/24 13:45 Temperature Pulse Rate 57 L 58 L Respiratory Rate 17 Blood Pressure 118/57 L Pulse Oximetry 97 95 Oxygen Flow Rate 02/01/24 13:45 02/01/24 13:50 02/01/24 13:55 Temperature Pulse Rate 62 59 L 62 Respiratory Rate 21 13 14 Blood Pressure Pulse Oximetry 95 97 97 Oxygen Flow Rate 02/01/24 14:00 02/01/24 14:00 02/01/24 14:05 Temperature Pulse Rate 61 60 Respiratory Rate 16 16 Blood Pressure 119/58 L Pulse Oximetry 97 97 Oxygen Flow Rate 02/01/24 14:10 02/01/24 14:15 02/01/24 14:15 Temperature Pulse Rate 64 58 L Respiratory Rate 19 11 L Blood Pressure 121/67 Pulse Oximetry 97 95 Oxygen Flow Rate 02/01/24 14:20 02/01/24 14:25 02/01/24 14:30 Temperature Pulse Rate 58 L 62 58 L Respiratory Rate 21 16 Blood Pressure Pulse Oximetry 96 96 96 Oxygen Flow Rate 02/01/24 14:31 02/01/24 14:31 02/01/24 14:35 Temperature Pulse Rate 60 60 Respiratory Rate 14 Blood Pressure 96/54 L Pulse Oximetry 97 96 Oxygen Flow Rate 02/01/24 14:40 02/01/24 15:37 Temperature 98.6 F 97.9 F Pulse Rate 59 L 60 Respiratory Rate 21 18 Blood Pressure 107/59 L Pulse Oximetry 95 98 Oxygen Flow Rate 0 Oxygen Delivery Method Room Air Oxygen Flow Rate 0 Narrative Exam Narrative: GEN: NAD, anxious HEENT: moist mucous membranes, no sinus tenderness to palpation CV: RRR, no murmurs PULM: wheezes herd diffusely on the right and clear lung sounds on the left ABD: soft, non-distended, no tenderness to palpation on all 4 quadrants EXT: warm and well perfused with no peripheral edema Objective Labs 02/02/24 04:03 02/02/24 04:03 Labs: Laboratory Results - last 24 hr 02/01/24 02/01/24 02/01/24 09:37 13:20 13:35 WBC 8.8 RBC 4.38 L Hgb 14.6 Hct 42.0 MCV 95.9 MCH 33.3 MCHC 34.7 RDW 13.9 Plt Count 247 Neut % (Auto) 67.2 Lymph % (Auto) 15.6 L [place] % (Auto) 12.7 Eos % (Auto) 3.9 Baso % (Auto) 0.6 Neut # (Auto) 5900 Lymph # (Auto) 1400 [place] # (Auto) 1100 H Eos # (Auto) 300 Baso # (Auto) 100 D-Dimer 457 Sodium 134 L Potassium 3.8 Chloride 105 Carbon Dioxide 22 BUN 15 Creatinine 1.18 Estimated GFR > 60 BUN/Creatinine Ratio 12.7 Glucose 136 H Calcium 8.4 Total Bilirubin 0.8 AST 36 ALT 21 Alkaline Phosphatase 60 Troponin I < 0.012 < 0.012 Total Protein 7.0 Albumin 3.8 Globulin 3.2 Albumin/Globulin Ratio 1.2 TSH 2.29 Urine RBC None seen Urine WBC None seen Ur Squamous Epith Cells None seen Urine Bacteria None seen Ur Culture Indicated? Cult not indicated Vol Urine Centrifuged 10ml (spun) Assessment & Plan Assessment & Plan narrative: # Syncope likely 2/2 to Orthostatic Hypotension -patient having systolic drop of 30 pts -unclear etiology -give 1L NS bolus, 100cc/hr after. Hold lisinopril. -qshift orthostatics -tele -echo reassuring with normal EF # likely viral URI -patient notes 2 weeks of congestion, cough, rhinorrhea and not improved with augmentin or Z-fatou -obtain resp PCR # pulm nodule on CT chest -3mm no f/u needed Code status is full code. DVT prophylaxis with SCDs. Proxy is . I have reviewed home meds and used all available resources to reconcile the home meds. Case discussed with ED physician/APC and patient will be admitted to the hospitalist service for further workup and management. This patient will be admitted as observation and will require less than 2 midnights of hospital time to treat syncope workup. Quality VTE Deep Vein Thrombosis/Pulmonary Embolism Present on Admission: No
[2024-02-01 19:39] LABS: Adenovirus Not Detected (Not Detect); B. parapertussis Not Detected (Not Detecte); Bordetella pertussis Not Detected (Not Detect); Chlamydophila pneumoniae Not Detected (Not Detect); Coronavirus 229E Not Detected (Not Detect); Coronavirus HKU1 Not Detected (Not Detect); Coronavirus NL 63 Not Detected (Not Detect); Coronavirus OC43 Not Detected (Not Detect); Human Metapneumovirus Not Detected (Not Detect); Human Rhinovirus/Enterovirus Not Detected (Not Detect); Influenza A Not Detected (Not Detect); Influenza B Not Detected (Not Detect); Mycoplasma pneumoniae Not Detected (Not Detect); Parainfluenza Virus 1 Not Detected (Not Detect); Parainfluenza Virus 2 Not Detected (Not Detect); Parainfluenza Virus 3 Detected (Not Detect); Parainfluenza Virus 4 Not Detected (Not Detect); Respiratory Syncytial Virus Not Detected (Not Detect); SARS- CoV-2 Not Detected (Not Detecte)
[2024-02-02 00:17] VITALS: BP 132/68; PULSE 60; RESP 18; TEMP 36.7; O2SAT 95
[2024-02-02] MEDS: SODIUM CHLORIDE 0.9% 1,000 ML 100 ML IV (03:16)
[2024-02-02 04:08] VITALS: BP 111/80; PULSE 61; RESP 16; TEMP 36.9; O2SAT 97
[2024-02-02 05:10] LABS: Add Manual Diff / Slide Review NO; Basophils Absolute Auto 0 /uL (0-100); Basophils Percent Auto 0.8 % (0-2); Eosinophils Absolute Auto 400 /uL (0-450); Eosinophils Percent Auto 6.1 % (2-4); Hemoglobin 13.7 g/dL (13.5-17.5); Lymphocytes Absolute Auto 1800 /uL (1100-4500); Lymphocytes Percent Auto 29.9 % (25-40); Mean Corpuscular HGB Conc 34.4 % (30-36); Mean Corpuscular Hemoglobin 33.1 PG (26-34); Mean Corpuscular Volume 96.3 fL (80-100); Monocytes Absolute Auto 1000 /uL (0-900); Monocytes Percent Auto 16.5 % (3-14); Neutrophils Absolute Auto 2800 /uL (1500-7000); Neutrophils Percent Auto 46.7 % (50-75); Platelet Count 228 X10^3/uL (150-400); Red Blood Cell Count 4.15 X10^6/uL (4.5-5.9); Red Cell Distribution Width 13.8 % (11.6-14.8)
[2024-02-02 05:36] LABS: Troponin I < 0.012 ng/mL (0.01-0.034)
[2024-02-02 05:42] LABS: BUN Creatinine Ratio 12.7 (6-22); Blood Urea Nitrogen 13 mg/dL (9-20); Calcium 8.2 mg/dL (8.4-10.2); Carbon Dioxide 24 mmol/L (22-32); Chloride 109 mmol/L (98-107); Estimated Glomerular Filt Rate > 60 mL/min (>60); Glucose 90 mg/dL (80-110); HEMOLYSIS < 15 (0-50); Potassium 4.1 mmol/L (3.4-5.1); Sodium 137 mmol/L (137-145)
[2024-02-02 08:00] VITALS: BP 112/60; PULSE 61; RESP 20; TEMP 36.6; O2SAT 97
--- NOTE | 2024-02-02 08:05 | PC.NURSE ---
Patient up to the bathroom, denies feeling dizzy. IV to r.hand dislodged. Pressure dressing applied to area. Patient is back to bed and waiting for breakfast. BS cta, he does have some congestion.
[2024-02-02 10:00] VITALS: BP 108/61; BP 120/73; BP 127/67; PULSE 69; PULSE 72; PULSE 85
[2024-02-02 12:00] VITALS: BP 110/63; PULSE 64; RESP 18; TEMP 36.6; O2SAT 94
--- NOTE | 2024-02-02 14:54 | CM.DANOTE ---
Initial DCP Assessment Visit Note Reviewed EMR and team rounds for status updates. Met at bedside with pt, spouse, and dtr to introduce self and role. Pt was found to be alert, oriented, sitting upright in his recliner preparing for d/c home. He and his reside independently in their own home in [place], they were here visiting. He has been medically cleared for d/c, and will be transported home by family once the d/c packet is complete. No DCP needs identified for assistance during this admission. Payor: [employer] Attending: Hospitalist Pt is a 63 year-old M who presented to the ED last evening via EMS following 2-syncopal episodes. He and his are from [place], and are scheduled to fly home tomorrow. He's been sick for about 3-weeks with cold symptoms, was found to be positive for the flu. Pt was started on IV fluids and placed in OBS bed for further monitoring, he was improving by the time he was brought to the floor. Discharge Planning/Care Management CM Discharge Assessment Start: 02/02/24 14:53 Freq: Status: Active Protocol: Document 02/02/24 14:53 DPL (Rec: 02/02/24 14:54 DPL [id number]) Discharge Planning Assessment Assigned Machine Puller ALEXA Ley Advance Directives? No History Provided By Patient,Family Member,Medical Record Has Patient been admitted in last 30 No days? Prior Living Arrangements House Household Members spouse Type of transporation used prior to Drives own vehicle admit Independent with ADL's Yes Is patient alert and oriented? Yes Caregiver for Another No Comment N/A Discharge Plan Home Referrals Initiated None needed Whiteboard Updated in Patient Room with Yes name and ext. # of Machine Puller Review Status In Process Please Provide Date Initial DC 02/02/24 Assessment Was Performed
--- NOTE | 2024-02-02 18:44 | PM.DS.1 ---
History of Present Illness History of Present Illness Chief complaint: syncope Narrative: Samir is a 63 YO male with no past medical history. He is presenting today with a CC of syncope. At 8am this morning he felt very nauseous and diaphoretic on his way to the bathroom he fainted. He then laid down for a few minutes and as he tried to stand back up he fainted a second time. He reports not hitting his head but losing consciousness both times for a few seconds. He has been struggling with a sinus infection for the past 3 weeks and has been put on Amoxicillin as well as a Z-pack that he finished a few days ago. Over the past 3 weeks he has had a productive cough that produces brownish green sputum. His also mentioned she can hear him wheezing. Associated with the cough he has been complaining of a sore throat, rhinorrhea, a sinus headache, fever, and chills. Patient denies SOB, vomiting, or diarrhea. Discharge Providers Provider Date of admission: 02/01/24 13:23 Discharge Date: 02/02/24 Discharge provider: Darian Jcak DO Summary Hospital Course Discharge Diagnosis: # Syncope likely 2/2 to Orthostatic Hypotension -patient having systolic drop of 30 pts -unclear etiology -give 1L NS bolus, 100cc/hr after. Hold lisinopril. -qshift orthostatics improved -tele -echo reassuring with normal EF # acute parainfluenza -patient notes 2 weeks of congestion, cough, rhinorrhea and not improved with augmentin or Z-fatou -resp PCR positive for parainfluenza # pulm nodule on CT chest -3mm no f/u needed Hospital Course: Admitted for syncope x2 at home. Found to be orthostatic positive. This improved with IVF. Resp PCR positive for parainfluenza. Discharged home. Exam Vital Signs (past 8 hours): Oxygen Delivery Method Room Air Oxygen Flow Rate 0 Narrative Exam Narrative: GEN: NAD, anxious HEENT: moist mucous membranes, no sinus tenderness to palpation CV: RRR, no murmurs PULM: wheezes herd diffusely on the right and clear lung sounds on the left ABD: soft, non-distended, no tenderness to palpation on all 4 quadrants EXT: warm and well perfused with no peripheral edema Objective Labs 02/02/24 04:03 02/02/24 04:03 PFSH Social History household members: spouse Smoking Status: Never smoker alcohol intake: current Discharge Plan Discharge Plan Patient Disposition: Home Discharge orders & Medications Prescriptions: No Action No Known Home Medications Visit Report/Discharge Packet Instructions: DI for Syncope in Adults (Fainting), Fainting Stand Alone Forms: Patient Portal/API, Stroke Signs & Symptoms Discharge Data Attending Provider: Darian Jack Admit Date/Time: 02/01/24 13:23 Quality VTE Deep Vein Thrombosis/Pulmonary Embolism Present on Admission: No
== END 2024-02-02 12:59 | disposition home or self-care (01) ==
LOC: ED 13:23 → AC 13:23
PROVIDERS: Admitting Provider Student in an Organized Health Care Education/Training Program; Emergency Provider Emergency Medicine; Visit Provider Student in an Organized Health Care Education/Training Program
DX: I95.1 Orthostatic hypotension (principal); J11.1 Influenza due to unidentified influenza virus with other respiratory manifestations; Z11.52 Encounter for screening for COVID-19
CPT/HCPCS: 36415; 70450; 70496; 70498; 71250; 80048; 80053; 81003; 81015; 84443; 84484; 85025; 85379; 87633; 93005; 93010; 93306; 96360; 96361; 99284; G0378; Q9967